=== PATIENT | female | born 1940 | race American Indian/Alaskan Native ===

== ENCOUNTER 2016-11-04 09:40 | Emergency (ER) | payer MEDICARE ==
--- NOTE | 2016-11-04 10:12 | Emergency Department Report ---
ED CPR HPI - General Chief Complaint: Cardiac Arrest/CPR Stated Complaint: CARDIAC ARREST Time Seen by Provider: 11/04/16 10:10 Source: EMS Mode of arrival: Stretcher Limitations: Other - History of Present Illness Initial Comments: According to the medic report the patient was last seen alive at 6:30 AM. When they arrived at the home they found the patient without signs of life. There was no signs of breathing or spontaneous circulation. Patient does have a pacemaker. The patient was intubated and standard ACLS protocols were deployed. She had no return of spontaneous circulation over the course of at least 30 minutes of resuscitation per aluminum siding mechanic. She arrived at this facility with pacemaker complexes but no apparent significant capture. He Doppler exam was performed and it was found to be negative for circulation. There were no signs of life. The patient was thereby pronounced on arrival. MD Complaint: found unresponsive -: minute(s), hour(s) Place: home Bystander CPR Performed: No AED Applied by Bystander/Call Center Coordinator: No Shock Advised: No Initial Findings in the Field: unresponsive, systole ROSC in the Field: No Associated Injuries: No Treatments Prior to Arrival: intubation, epinephrine mgs # - Related Data Allergies Allergy/AdvReac Type Severity Reaction Status Date / Time Unable to Assess Allergy Unverified 11/04/16 09:53 ED Review of Systems ROS: Stated complaint: CARDIAC ARREST Other details as noted in HPI Comment: Unobtainable due to pts medical conditions ED Past Medical Hx - Past Medical History Additional medical history: MARILOU - Surgical History Additional Surgical History: MARILOU. PEG - Social History Smoking Status: Unknown if ever smoked Other Social History: Resides at home. Patient does have a feeding tube. ED Physical Exam - General Limitations: Other (no signs of life) - Head Head exam: Present: atraumatic - Eye Eye exam: Absent: scleral icterus - ENT ENT exam: Present: normal exam - Neck Neck exam: Present: normal inspection - Respiratory Respiratory exam: Present: normal lung sounds bilaterally (with Ambu bag assist) - Cardiovascular Cardiovascular Exam: Present: other (no cardiac sounds) - GI/Abdominal GI/Abdominal exam: Absent: distended - Extremities Exam Extremities exam: Present: normal inspection - Neurological Exam Neurological exam: Present: other (GCS is 3) ED Course Vital Signs 11/04/16 09:51 Pulse Rate 0 L Respiratory 0 L Rate - Reevaluation(s) Reevaluation #1: Greater than 30 minutes of lack of spontaneous circulation made any further CPR futile 11/04/16 10:14 11/04/16 10:14 Reevaluation #2: Family will be counseled unavailable. 11/04/16 10:14 Critical care attestation.: If time is entered above; I have spent that time in minutes in the direct care of this critically ill patient, excluding procedure time. ED Disposition Clinical Impression: Cardiac arrest Disposition: DC-20 Is pt being admited?: No Does the pt Need Aspirin: No Condition: Stable Referrals: PRIMARY CARE, [Primary Care Provider] - 3-5 Days Time of Disposition: 10:15
== END 2016-11-04 16:19 ==
LOC: ED 09:40
DX: I46.9 Cardiac arrest, cause unspecified (principal)
CPT/HCPCS: 99285